=== PATIENT | female | born 1990 | race Caucasian/White ===

== ENCOUNTER 2018-08-06 11:07 | Emergency (ER) | payer SELFPAY ==
[2018-08-06] MEDS ORDERED: IBUPROFEN 800 MG TABLET PO ONE (11:21)
[2018-08-06] MEDS ORDERED: PENICILLIN V POTASSIUM 500 MG TABLET PO ONE (11:21)
--- NOTE | 2018-08-06 11:24 | ER Document Report ---
HPI - HPI Patient complains to provider of: dental pain Time Seen by Provider: 08/06/18 11:14 Onset: Other Onset/Duration: Persistent Quality of pain: Achy Severity: Severe Pain Level: 4 Context: Patient presents emergency department with complaints of right-sided dental pain for the past few days. Reports she felt like an abscess popped and there. She complains of pain when she eats. She also complains teeth are sensitive to heat and cold. Reports she does not have insurance. Denies fever vomiting diarrhea. Associated Symptoms: None Exacerbated by: Food Relieved by: Denies Similar symptoms previously: No Recently seen / treated by doctor: No - REPRODUCTIVE Reproductive: DENIES: : Past Medical History - General Information source: Patient - Social History Smoking Status: Current Every Day Smoker Cigarette use (# per day): Yes Frequency of alcohol use: None Drug Abuse: None, Other - History of substance abuse when she was 16 she OD'd Family History: Reviewed & Not Pertinent Patient has suicidal ideation: No Patient has homicidal ideation: No - Past Medical History Cardiac Medical History: Denies: Hx Coronary Artery Disease, Hx Heart Attack, Hx Hypertension Pulmonary Medical History: Denies: Hx Asthma, Hx Bronchitis, Hx COPD, Hx Pneumonia Neurological Medical History: Denies: Hx Cerebrovascular Accident, Hx Seizures Musculoskeletal Medical History: Denies Hx Arthritis Surgical Hx: Negative - Immunizations Hx Diphtheria, Pertussis, Tetanus Vaccination: Yes Vertical Provider Document - CONSTITUTIONAL Agree With Documented VS: Yes Exam Limitations: No Limitations General Appearance: WD/WN, No Apparent Distress - INFECTION CONTROL TRAVEL OUTSIDE OF THE [place] IN LAST 30 DAYS: No - HEENT HEENT: Atraumatic, Normocephalic Mouth Diagram: 1 - complains of right-sided pain. No swelling, no pustule, no erythema noted. Patient opens mouth wide clear voice no Ludwigs - NECK Neck: Normal Inspection, Supple. negative: Lymphadenopathy-Left, Lymphadenopathy-Right - RESPIRATORY Respiratory: Breath Sounds Normal, No Respiratory Distress - CARDIOVASCULAR Cardiovascular: Regular Rate - MUSCULOSKELETAL/EXTREMETIES Musculoskeletal/Extremeties: MAEW, FROM - NEURO Level of Consciousness: Awake, Alert, Appropriate Motor/Sensory: No Motor Deficit - DERM Integumentary: Warm, Dry Course - Re-evaluation Re-evalutation: 08/06/18 11:56 Patient was instructed on [facility]. Patient was prescribed penicillin Motrin for pain. Was also instructed to return to the emergency department for increased pain concerns unable to open mouth or unable to swallow she verbalized understanding to all instructions. - Vital Signs Vital signs: 08/06/18 11:24 98.6 77 124/77 97% Discharge - Discharge Clinical Impression: Pain, dental Condition: Stable Disposition: HOME, SELF-CARE Instructions: [facility], Use of Qlni-Fsk-Htxuspn Ibuprofen ([facility]), Penicillin V K ([facility]), Toothache ([facility]) Additional Instructions: *You have been evaluated for dental pain *Take medication as prescribed *Follow up with dentist within one week *Return to ED for worsening condition, changes, needs, unable to open mouth, difficulty swallowing Prescriptions: Penicillin V Potassium [Penicillin Vk 500 mg Tablet] 500 mg PO BID #20 tablet Referrals: BRANDT SCALES MD [ACTIVE STAFF] - Follow up as needed
[2018-08-06 11:32] VITALS: BP 124/71
== END 2018-08-06 11:42 | disposition home or self-care (01) ==
LOC: ER 11:07
DX: K08.9 Disorder of teeth and supporting structures, unspecified (principal); F17.210 Nicotine dependence, cigarettes, uncomplicated
CPT/HCPCS: 99282